=== PATIENT | female | born 1970 | race Caucasian/White ===

== ENCOUNTER → 2021-12-22 | Outpatient (CLI) | payer OTHER ==
--- NOTE | 2021-12-22 15:49 | BD ---
EXAMINATION TYPE: Axial Bone Density DATE OF EXAM: 12/22/2021 COMPARISON: NONE CLINICAL HISTORY: 51 years year old Female. ICD-10 CODE: Z78.0 POST MENOPUASAL SYMPTOMS Height: 5'4 Weight: 141 FRAX RISK QUESTIONS: History of Fracture in Adulthood: y Secondary Osteoporosis: Current Tobacco Use: y RISK FACTORS HISTORY OF: Postmenopausal woman: y MEDICATIONS: Additional Medications: blood pressure Additional History: EXAM MEASUREMENTS: Bone mineral densitometry was performed using the [employer] System. Bone mineral density as measured about the Lumbar spine is: ----- L1-L4(G/cm2): 0.159 T Score Values are as follows: ----- L1: -0.9 ----- L2: -0.2 ----- L3: -0.6 ----- L4: -0.2 ----- L1-L4: -0.5 Bone mineral density about the R hip (g/cm2): 0.852 Bone mineral density about the L hip (g/cm2): 0.824 T Score values are as follows: -----R Neck: -1.3 -----L Neck: -1.5 -----R Total: -1.3 -----L Total: -1.4 FRAX%s: The graph provided illustrates a 6.0% chance for a major osteoporotic fx and a 0.9% chance fo r the hips probability for fx in 10 years time. IMPRESSION: Osteopenia (T Score between -2.5 and -1). There is slightly increased risk of fracture and the patient may be considered for treatment. Re-Screen 2-5 years. NOTE: T-SCORE=SD OF THE YOUNG ADULT MEAN.
--- NOTE | 2021-12-23 15:38 | MM ---
Reason for Exam: Screening (asymptomatic). Last mammogram was performed 8 year(s) and 7 month(s) ago. Patient History: Menarche at age 8. First Full-Term at age 14. Postmenopausal. 08/01/2012, Benign Excisional Biopsy on the left side. 07/04/2012, Benign Core Biopsy on the left side. Maternal cousin had breast cancer, age 50. Risk Values: Loan 5 year model risk: 1.3%. NCI Lifetime model risk: 10.0%. Prior Study Comparison: 06/05/2012 Bilateral Diagnostic Mammogram, [facility]. 02/15/2013 Left Diagnostic Mammogram, [facility]. 06/01/2013 Bilateral Diagnostic Mammogram, [facility]. Tissue Density: The breast tissue is almost entirely fat. Findings: Analyzed By CAD. There is no suspicious group of microcalcifications or new suspicious mass in either breast. Overall Assessment: Negative, BI-RAD 1 Management: Screening Mammogram of both breasts in 1 year. A clinical breast exam by your physician is recommended on an annual basis and results should be correlated with mammographic findings. Electronically signed and approved by: Charly Hudson DO
== END | disposition home or self-care (01) ==
LOC: RADMAMWWP 14:20
PROVIDERS: ATTEND Family Medicine
DX: Z12.31 Encounter for screening mammogram for malignant neoplasm of breast (principal); M85.89 Other specified disorders of bone density and structure, multiple sites; Z78.0 Asymptomatic menopausal state
CPT/HCPCS: 77067; 77080

== ENCOUNTER → 2022-03-10 | Outpatient (CLI) | payer OTHER ==
--- NOTE | 2022-03-10 14:22 | CTL ---
EXAMINATION TYPE: CT Low Dose Lung DATE OF EXAM ORDERED: 03/10/2022 HISTORY: 51-year-old female current smoker, 25 pack-year history. Lung cancer screening CT DLP: [address] CTDI: 1.91 mGy Automated exposure control for dose reduction was used. SCREENING VISIT: Baseline COMPARISON: None TECHNIQUE: Low dose computed tomography scan was performed through the chest with coronal and sagitta l reconstructions. CT DIAGNOSTIC QUALITY: Satisfactory FINDINGS: Heart normal size without pericardial effusion. Ascending aorta ectatic at 3.8 cm with very direct takeoff of the left vertebral artery directly from the aortic arch. No thoracic lymphadenopathy by CT size criteria. Mild biapical pleural parenchymal scarring. Mild centrilobular emphysema. Mild diffuse bronchial wall thickening. Some strandy atelectasis at the left base. There is a subpleural pulmonary nodule measuring 1.1 cm lateral right upper lobe, axial image 63 and MIP coronal image 31. A few adjacent nonspecific tiny 3 mm nodules are present in the lateral right u pper lobe, axial image 67, 75, and 90. 4 mm pulmonary nodule lateral right upper lobe, axial image 92. No consolidation or pleural effusion. Tiny hiatal hernia. Visualized upper abdomen otherwise shows no gross abnormality. Bones: S-shaped scoliosis. IMPRESSION: 1. LungRADS Category 4A (suspicious, 5-15% chance of malignancy). 1.1 cm right upper lobe nodule on b aseline. A few additional right upper lobe nodules measuring up to 4 mm as well. Three-month follow-u p low-dose CT chest to reassess. 2. COPD with mild emphysema. Smoking cessation. 3. Tiny hiatal hernia. S-shaped scoliosis. CT LUNG RAD AND CT CHEST RECOMMENDATION: Lung-Rad 4A Suspicious: Follow-up 3 month LDCT or PET/CT may be used when there is a > 8 mm solid component. S Modifier (other clinically significant findings): None
== END | disposition home or self-care (01) ==
LOC: RADCTMAIN 11:24
PROVIDERS: ATTEND Family Medicine
DX: Z12.2 Encounter for screening for malignant neoplasm of respiratory organs (principal); J43.9 Emphysema, unspecified; K44.9 Diaphragmatic hernia without obstruction or gangrene; R91.8 Other nonspecific abnormal finding of lung field; Z87.891 Personal history of nicotine dependence
CPT/HCPCS: 71271

== ENCOUNTER → 2022-05-07 | Outpatient (CLI) | payer OTHER ==
--- NOTE | 2022-05-07 15:21 | PE ---
EXAMINATION TYPE: PET CT fusion skull to thigh DATE OF EXAM: 05/07/2022 COMPARISON: Prior CT March 10, 2022 HISTORY: Solitary pulmonary nodule, abnormal CT. TECHNIQUE: Following the intravenous administration of 10.78 mCi of F-18 FDG, whole body images are performed from the skull base to the midthigh. Images are reviewed on the computer in the coronal, a xial, and sagittal planes. Reconstructed rotating images are created on independent workstation and reviewed on the computer. A localization and attenuation correction CT is performed in conjunction with the PET scan. Blood glucose level equals 94. SCAN: Initial Scan FINDINGS: SKULL BASE AND NECK: There is symmetric mild hypermetabolic uptake bilateral supraclavicular regions corresponding to brown fat on CT. No definitive areas of abnormal hypermetabolic uptake. CHEST, MEDIASTINUM, AND HILAR REGION: Mild to moderate underlying emphysematous change is redemonstra ellis. Persistent 1.1 x 0.6 cm spiculated nodule periphery of the right upper lobe axial image 81 is am etabolic on this study. No areas of abnormal hypermetabolic uptake throughout the thorax are seen. ABDOMEN AND PELVIS: No suspicious adrenal masses. Normal excretion is seen. No areas of abnormal hype rmetabolic uptake. OSSEOUS STRUCTURES: No areas of abnormal hypermetabolic uptake. OTHER CT: The ascending aorta measures up to 3.9 cm in diameter.There are 7 mm calculus in the left r enal pelvis axial image 149. There is additional 4 mm nonobstructing calculus lower pole level axial image 154. Retroflexed uterus is seen. S-shaped scoliosis is redemonstrated. IMPRESSION: No abnormal hypermetabolic uptake in the spiculated peripheral 1.1 cm right upper lobe no dule to suggest malignancy. Advise diagnostic CT follow-up in 6 months time to document stability of lesion.
== END | disposition home or self-care (01) ==
LOC: RADPETMAIN 13:19
PROVIDERS: ATTEND Family Medicine
DX: R91.8 Other nonspecific abnormal finding of lung field (principal)
CPT/HCPCS: 78815; A9552

== ENCOUNTER → 2022-12-23 | Outpatient (CLI) | payer OTHER ==
--- NOTE | 2022-12-24 22:56 | MM ---
Reason for Exam: Screening (asymptomatic). Last screening mammogram was performed 12 month(s) ago. Patient History: Menarche at age 8. First Full-Term at age 14. Postmenopausal. 08/01/2012, Benign Excisional Biopsy on the left side. 07/04/2012, Benign Core Biopsy on the left side. Maternal cousin had breast cancer, age 50. Risk Values: Loan 5 year model risk: 1.4%. NCI Lifetime model risk: 9.9%. Prior Study Comparison: 02/15/2013 Left Diagnostic Mammogram, [facility]. 06/01/2013 Bilateral Diagnostic Mammogram, [facility]. 12/22/2021 Bilateral MG screening mammo w CAD, [facility]. Tissue Density: The breast tissue is almost entirely fat. Findings: Analyzed By CAD. There is no suspicious group of microcalcifications or new suspicious mass in either breast. Overall Assessment: Negative, BI-RAD 1 Management: Screening Mammogram of both breasts in 1 year. . Patient should continue monthly self-breast exams. A clinical breast exam by your physician is recommended on an annual basis. This exam should not preclude additional follow-up of suspicious palpable abnormalities. Note on Loan scores and lifetime risk: 1. A Loan score greater than 3% is considered moderate risk. If this is the case, consider specialist referral to assess eligibility for a risk reducing agent. 2. If overall lifetime risk for the development of breast cancer is 20% or higher, the patient may qualify for future screening with alternating mammogram and breast MRI. Electronically signed and approved by: Na Steele M.D. Radiologist
== END | disposition home or self-care (01) ==
LOC: RADMAMWWP 15:47
PROVIDERS: ATTEND Family Medicine
DX: Z12.31 Encounter for screening mammogram for malignant neoplasm of breast (principal); Z78.0 Asymptomatic menopausal state; Z80.3 Family history of malignant neoplasm of breast
CPT/HCPCS: 77063; 77067

== ENCOUNTER 2023-08-16 20:54 | Emergency (ER) | payer OTHER ==
[2023-08-16 21:22] VITALS: TEMP 98.5
--- NOTE | 2023-08-16 22:30 | ED ---
General Adult HPI - General Chief complaint: Skin/Abscess/Foreign Body Stated complaint: Infection Time Seen by Provider: 08/16/23 21:21 Source: patient, RN notes reviewed Mode of arrival: ambulatory Limitations: no limitations - History of Present Illness Initial comments: 52-year-old female presents to the emergency department for evaluation of rash u nder her breasts. She states that has been there for around 2 weeks. She notes that she saw her primary care provider for this recently and was started on nystatin powder. She states that after starting the nystatin the rash had gotten significantly worse. She reports that the powder had built up under her breasts. She denies fever, chills. - Related Data Previous Rx's Medication Instructions Recorded Fluconazole [Diflucan] 100 mg PO DAILY #7 tablet 08/16/23 Allergies Allergy/AdvReac Type Severity Reaction Status Date / Time nystatin Allergy Rash/Hives Verified 08/16/23 21:04 Penicillins Allergy Unknown Verified 08/16/23 21:04 Childhood Review of Systems ROS Statement: Those systems with pertinent positive or pertinent negative responses have been documented in the HPI. ROS Other: All systems not noted in ROS Statement are negative. Past Medical History Past Medical History: Hypertension History of Any Multi-Drug Resistant Organisms: None Reported Past Surgical History: No Surgical Hx Reported Past Psychological History: No Psychological Hx Reported Smoking Status: Former smoker Past Alcohol Use History: None Reported Past Drug Use History: None Reported General Exam Limitations: no limitations General appearance: alert, in no apparent distress Head exam: Present: atraumatic, normocephalic, normal inspection Eye exam: Present: normal appearance, PERRL, EOMI. Absent: scleral icterus, conjunctival injection, periorbital swelling ENT exam: Present: normal exam, mucous membranes moist Respiratory exam: Present: normal lung sounds bilaterally. Absent: respiratory distress, wheezes, rales, rhonchi, stridor Cardiovascular Exam: Present: regular rate, normal rhythm, normal heart sounds. Absent: systolic murmur, diastolic murmur, rubs, gallop, clicks Extremities exam: Present: normal inspection, full ROM, normal capillary refill. Absent: tenderness, pedal edema, joint swelling, calf tenderness Neurological exam: Present: alert, oriented X3 Psychiatric exam: Present: normal affect, normal mood Skin exam: Present: warm, dry, other (Erythema, chafing and excoriation to the skin under the breast bilaterally). Absent: intact, normal color Course Vital Signs 08/16/23 08/16/23 21:02 22:41 Temperature 98.5 F Pulse Rate 105 H 62 Respiratory 20 18 Rate Blood Pressure 176/118 156/89 O2 Sat by Pulse 95 97 Oximetry Medical Decision Making - Medical Decision Making Was pt. sent in by a medical professional or institution (, CHITO, DAIRY SPECIALIST, urgent care, hospital, or correction...) When possible be specific @ -No Did you speak to anyone other than the patient for history (EMS, parent, family, police, friend...)? What history was obtained from this source @ -No Did you review nursing and triage notes (agree or disagree)? Why? @ -I reviewed and agree with nursing and triage notes Were old charts reviewed (outside hosp., previous admission, EMS record, old EKG, old radiological studies, urgent care reports/EKG's, correction records)? Report findings @ -No old charts were reviewed Differential Diagnosis (chest pain, altered mental status, abdominal pain women, abdominal pain men, vaginal bleeding, weakness, fever, dyspnea, syncope, headache, dizziness, GI bleed, back pain, seizure, CVA, palpatations, mental health, musculoskeletal)? @ -Intertrigo, cellulitis, abscess, this list is not all inclusive EKG interpreted by me (3pts min.). @ -None X-rays interpreted by me (1pt min.). @ -None done CT interpreted by me (1pt min.). @ -None done U/S interpreted by me (1pt. min.). @ -None done What testing was considered but not performed or refused? (CT, X-rays, U/S, labs)? Why? @ -None What meds were considered but not given or refused? Why? @ -None Did you discuss the management of the patient with other professionals (professionals i.e. CHITO Carter, DAIRY SPECIALIST, lab, RT, psych nurse, social media sr strategy manager, certified neurodiagnostic technologist, teacher, property and supply officer, pillowcase folder)? Give summary @ -No Was smoking cessation discussed for >3mins.? @ -No Was critical care preformed (if so, how long)? @ -No Were there social determinants of health that impacted care today? How? (Homelessness, low income, unemployed, alcoholism, drug addiction, transportation, low edu. Level, literacy, decrease access to med. care, usp, rehab)? @ -No Was there de-escalation of care discussed even if they declined (Discuss DNR or withdrawal of care, Hospice)? DNR status @ -No What co-morbidities impacted this encounter? (DM, HTN, Smoking, COPD, CAD, Cancer, CVA, ARF, Chemo, Hep., AIDS, mental health diagnosis, sleep apnea, morbid obesity)? @ -None Was patient admitted / discharged? Hospital course, mention meds given and route, prescriptions, significant lab abnormalities, going to OR and other pertinent info. @ -Discharge. Patient presented to the emergency department for evaluation of rash under her breast. This has been going on for around 2 weeks. She notes that over the past few days it has gotten significantly worse when she started nystatin powder. Patient has rash significant with intertrigo, discussed keep ing the area dry. Patient believes that the nystatin powder has made the rash worse and therefore advised her to stop this at this time. Prescription written for oral fluconazole x 7 days. Advised to follow-up with her primary care provider. Patient understanding agreeable plan. Patient stable at time of discharge. Case discussed with Dr. Cat. Undiagnosed new problem with uncertain prognosis? @ -No Drug Therapy requiring intensive monitoring for toxicity (Heparin, Nitro, Insulin, Cardizem)? @ -No Were any procedures done? @ -No Diagnosis/symptom? @ -Intertrigo Acute, or Chronic, or Acute on Chronic? @ -Acute Uncomplicated (without systemic symptoms) or Complicated (systemic symptoms)? @ -Uncomplicated Side effects of treatment? @ -No Exacerbation, Progression, or Severe Exacerbation? @ -No Poses a threat to life or bodily function? How? (Chest pain, [place], HI, pneumonia, PE, COPD, DKA, ARF, appy, cholecystitis, CVA, Diverticulitis, Homicidal, Suicidal, threat to staff... and all critical care pts) @ -No Disposition Clinical Impression: Candidal intertrigo Disposition: HOME SELF-CARE Condition: Stable Instructions (If sedation given, give patient instructions): Skin Yeast Infection (ED) Additional Instructions: Please keep skin dry. Follow up with your primary care provider. Return to the emergency department for new or worsening symptoms. Prescriptions: Fluconazole [Diflucan] 100 mg PO DAILY #7 tablet Is patient prescribed a controlled substance at d/c from ED?: No Referrals: Bubba Cavazos MD [Primary Care Provider] - 1-2 days
[2023-08-16] MEDS: HYDROcodone/APAP 5-325MG 1 EACH TAB PO STA (22:39)
[2023-08-16 22:44] VITALS: BP 156/89; PULSE 62; RESP 18
[2023-08-16] MEDS: KETOROLAC 15 MG/ML 1 ML VIAL IM STA (23:09)
== END 2023-08-16 23:19 | disposition home or self-care (01) ==
LOC: EC 20:54
DX: B37.2 Candidiasis of skin and nail (principal); Z88.0 Allergy status to penicillin; Z88.1 Allergy status to other antibiotic agents; Z87.891 Personal history of nicotine dependence
CPT/HCPCS: 99283

== ENCOUNTER → 2024-06-18 | Outpatient (CLI) | payer OTHER ==
--- NOTE | 2024-06-18 15:28 | MM ---
Reason for Exam: Screening (asymptomatic). Last mammogram was performed 1 year(s) and 6 month(s) ago. Patient History: Menarche at age 8. First Full-Term at age 14. Postmenopausal. 08/01/2012, Benign Excisional Biopsy on the left side. 07/04/2012, Benign Core Biopsy on the left side. Maternal cousin had breast cancer, age 50. Risk Values: Loan 5 year model risk: 1.4%. NCI Lifetime model risk: 9.7%. Prior Study Comparison: 06/01/2013 Bilateral Diagnostic Mammogram, [facility]. 12/22/2021 Bilateral MG screening mammo w CAD, [facility]. 12/23/2022 Bilateral MG 3D screening mammo w/cad, [facility]. Tissue Density: The breasts are almost entirely fatty. Findings: Analyzed By CAD. There is no suspicious group of microcalcifications or new suspicious mass in either breast. Overall Assessment: Benign, BI-RAD 2 Management: Screening Mammogram of both breasts in 1 year. . Patient should continue monthly self-breast exams. A clinical breast exam by your physician is recommended on an annual basis. This exam should not preclude additional follow-up of suspicious palpable abnormalities. Note on Loan scores and lifetime risk: 1. A Loan score greater than 3% is considered moderate risk. If this is the case, consider specialist referral to assess eligibility for a risk reducing agent. 2. If overall lifetime risk for the development of breast cancer is 20% or higher, the patient may qualify for future screening with alternating mammogram and breast MRI. [facility], , 06/18/2024 3:04 PM. Electronically signed and approved by: Michael Adkins M.D. Radiologis
--- NOTE | 2024-06-19 08:27 | BD ---
EXAMINATION TYPE: Axial Bone Density DATE OF EXAM: 06/18/2024 CLINICAL HISTORY: 53 years old Female. ICD-10 CODE: Z78.0 POST MENOPAUSAL WITHOUT HRT , Additional H istory: Height: 64.25" Weight: 174lbs FRAX RISK QUESTIONS: Alcohol (3 or more units per day): No Family History (Parent hip fracture): No Glucocorticoids (More than 3mos): No (Ex: prednisone, prednisolone, methylprednisolone, dexamethasone, and hydrocortisone). History of Fracture in Adulthood: No Secondary Osteoporosis: 1. Type 1 Diabetes: No 2. Hyperthyroidism: No 3. Menopause before 45: Unknown 4. Malnutrition: No 5. Chronic liver disease: No Rheumatoid Arthritis: No Current Tobacco Use: No RISK FACTORS HISTORY OF: Hip Fracture (Right/Left): No Spine Fracture: No History of Wrist Fracture: No Surgery to Spine/Hip(right/left)/Wrist (right/left): No MEDICATIONS: Thyroid Medications: No Osteoporosis Medications: No EXAM MEASUREMENTS: Bone mineral densitometry was performed using the [employer] System. Bone mineral density as measured about the Lumbar spine is: ----- L1-L4(G/cm2): 1.128 T Score Values are as follows: ----- L1: -0.7 ----- L2: -0.6 ----- L3: -0.1 ----- L4: -0.3 ----- L1-L4: -0.4 Z Score Values are as follows: ----- L1: -0.3 ----- L2: -0.2 ----- L3: 0.2 ----- L4: 0.1 ----- L1-L4: 0.0 Bone mineral density has: increased 0.2% since study of: 12/22/2021 Bone mineral density about the R hip (g/cm2): 0.884 Bone mineral density about the L hip (g/cm2): 0.936 T Score values are as follows: -----R Neck: -0.7 -----L Neck: -0.6 -----R Total: -1.0 -----L Total: -0.6 Z Score values are as follows: -----R Neck: 0.0 -----L Neck: 0.2 -----R Total: -0.6 -----L Total: -0.2 Bone mineral density has: increased 8.6% since study of: 12/22/2021 FRAX%s: The graph provided illustrates a 5.6% chance for a major osteoporotic fx and a 0.2% chance fo r the hips probability for fx in 10 years time. IMPRESSION: Normal (Values between +1 and -1 indicate normal bone mass). Consider repeating this study in 5 year s or sooner if there is some new clinical indication. NOTE: T-SCORE=SD OF THE YOUNG ADULT MEAN. [facility], , 06/19/2024 8:24 AM
== END | disposition home or self-care (01) ==
LOC: RADBDWWP 13:12
PROVIDERS: ATTEND Family Medicine
DX: Z12.31 Encounter for screening mammogram for malignant neoplasm of breast (principal); M81.8 Other osteoporosis without current pathological fracture; Z80.3 Family history of malignant neoplasm of breast; Z78.0 Asymptomatic menopausal state; R92.313 Mammographic fatty tissue density, bilateral breasts
CPT/HCPCS: 77063; 77067; 77080